=== PATIENT | male | born 1990 | race Caucasian/White ===

== ENCOUNTER 2018-05-28 00:46 | Emergency (ER) | payer SELFPAY ==
[~2018-05-28] VITALS: Ht 182.9 cm; Wt 104.6 kg
[2018-05-28 00:48] VITALS: BP 133/71
[2018-05-28] MEDS ORDERED: ESCI10TA10 PO (00:51)
[2018-05-28] MEDS ORDERED: ACETAMINOPHEN 500 MG TABLET PO ONE (01:30)
== END 2018-05-28 02:00 | disposition home or self-care (01) ==
LOC: ED 01:11
DX: R50.9 Fever, unspecified (principal); J02.9 Acute pharyngitis, unspecified; F31.9 Bipolar disorder, unspecified
CPT/HCPCS: 71045; 99283